=== PATIENT | male | born 1980 | race Caucasian/White ===

== ENCOUNTER 2019-04-17 10:15 | Day surgery (SDC) | payer OTHER ==
[~2019-04-17 10:15] MED LIST: CEFAZOLIN 2 GM/50 ML (PMX) 50 ML IVPB; DEXAMETHASONE 2 MG TAB PO; GABAPENTIN 300 MG CAP PO; oxyCODONE (CR) 10 MG TAB [oxyCONTIN] PO
[2019-04-17] MEDS: DEXAMETHASONE 2 MG TAB PO (13:00)
[2019-04-17] MEDS: oxyCODONE (CR) 10 MG TAB [oxyCONTIN] PO (13:00)
[2019-04-17] MEDS: GABAPENTIN 300 MG CAP PO (13:00)
[2019-04-17] MEDS ORDERED: ROPIVACAINE 0.5 % 30 ML VIAL (13:47)
[2019-04-17] MEDS ORDERED: FENTAnyl 50 MCG/ML VIAL (13:48)
[2019-04-17] MEDS ORDERED: MIDAZOLAM 1 MG/ML 2 ML INJ (13:48)
[2019-04-17] MEDS ORDERED: LIDOCAINE 2% (SDV) 5 ML INJ (14:25)
[2019-04-17] MEDS ORDERED: CEFAZOLIN 1 GM INJ (14:25)
[2019-04-17] MEDS ORDERED: PROPOFOL 20 ML (14:25)
[2019-04-17] MEDS ORDERED: ONDANSETRON 4 MG INJ (14:26)
[2019-04-17] MEDS ORDERED: MEPERIDINE 25 MG INJ (14:45)
[2019-04-17] MEDS: MEPERIDINE 25 MG INJ IV (14:55)
[2019-04-17] MEDS ORDERED: ONDANSETRON 4 MG INJ IV (15:00)
[2019-04-17] MEDS ORDERED: DIPHENHYDRAMINE 50 MG INJ IV (15:00)
[2019-04-17] MEDS ORDERED: OXYCODONE/ACETAMINOPHEN (5/325) TAB PO ×2 (15:00)
[2019-04-17] MEDS ORDERED: KETOROLAC 30 MG INJ IV (15:00)
[2019-04-17] MEDS ORDERED: FENTAnyl 50 MCG/ML VIAL IV (15:00)
[2019-04-17] MEDS ORDERED: METOCLOPRAMIDE 10 MG INJ IV (15:00)
[2019-04-17] MEDS ORDERED: HYDROmorphONE 1 MG/5 ML IV SYRINGE IV ×2 (15:00)
[2019-04-17] MEDS ORDERED: BUPIVACAINE 0.5% (SDV) 30 ML, morphine SULFATE (PF) 8 MG, EPINEPHrine 0.3 MG, KETOROLAC... IRR (16:00)
== END 2019-04-17 16:20 | disposition home or self-care (01) ==
LOC: SDS 10:15
DX: M67.51 Plica syndrome, right knee (principal); S82.141A Displaced bicondylar fracture of right tibia, initial encounter for closed fracture; X58.XXXA Exposure to other specified factors, initial encounter; Y93.64 Activity, baseball
CPT/HCPCS: 29875